=== PATIENT | male | born 1965 | race Caucasian/White ===

== ENCOUNTER 2018-04-26 09:59 | Emergency (ER) | payer MEDICAID, SELFPAY ==
[2016-08-26 13:44] VITALS: BMI 34.0
[2018-04-26 10:02] VITALS: BP 170/104; PULSE 85; RESP 18; TEMP 36.9; O2SAT 99; BMI 34.2
--- NOTE | 2018-04-26 10:14 | ED.VISSUMM ---
- ER Visit Summary Date of Service: 04/26/18 Chief Complaint: Burn to lower abdomen left thigh History of Present Illness: The patient is a 52 M drinking hot tea this morning approximately an hour ago and accidentally spilled it on his lower abdomen in the left thigh causing first and second-degree camp. Denies other injuries or complaints. He is not diabetic. Physical Examination: Well-appearing middle-age male. Vital signs are stable and afebrile. HEENT exam unremarkable. Lungs clear to auscultation. Heart regular rhythm. Abdomen is soft and nondistended. He has first-degree burn on his left lower anterior abdominal wall. There is no sloughing of skin. There is no blistering. It is red mildly tender. He also has an area on his proximal medial left thigh that has first and secondary camp with blistering. Again no sloughing of skin. The distal lower leg is neurovascularly intact. Neurologically is awake and alert without focal motor deficits. Test Results: None Emergency Department Course and Treatment: Antibiotic ointment or burn cream. Cool compresses. Limited Motrin for pain. Treatment Plan: Cool compresses. See above. Disposition: Discharge Impression: First and second-degree burn of left lower abdomen and left thigh secondary to hot liquid This note was generated with [employer] dictation software. It may contain incorrect words, spelling, and punctuation that were not noted in review of the chart prior to signing ED Disposition - Plan for ED Patient: Chief Complaint: Burn Referrals: Gavin Florez DO [Primary Care Provider] -
--- NOTE | 2018-04-26 10:16 | ED.DEP ---
ED Disposition - Plan for ED Patient: Disposition: Home or Assisted Living Chief Complaint: Burn Instructions: ED Burn Thermal D 2nd Dressing Referrals: Gavin Florez DO [Primary Care Provider] - As Needed Additional Instructions: Cool compresses to the area. Keep the wounds clean. Antibiotic ointment and/or burn cream. Motrin for pain and inflammation and limited amounts due to you being on Plavix.
== END 2018-04-26 10:40 | disposition home or self-care (01) ==
LOC: ED 10:34
PROVIDERS: Emergency Provider Emergency Medicine; Family Provider Family Medicine; PCP Family Medicine
DX: T21.22XA Burn of second degree of abdominal wall, initial encounter (principal); T24.212A Burn of second degree of left thigh, initial encounter; X12.XXXA Contact with other hot fluids, initial encounter; Y93.9 Activity, unspecified; Y92.9 Unspecified place or not applicable; I25.10 Atherosclerotic heart disease of native coronary artery without angina pectoris; K21.9 Gastro-esophageal reflux disease without esophagitis; I10 Essential (primary) hypertension; E78.00 Pure hypercholesterolemia, unspecified; G47.30 Sleep apnea, unspecified; I73.9 Peripheral vascular disease, unspecified; Z95.5 Presence of coronary angioplasty implant and graft; Z79.82 Long term (current) use of aspirin; Z79.899 Other long term (current) drug therapy
CPT/HCPCS: 99282

== ENCOUNTER → 2019-01-02 | Outpatient (CLI) | payer MEDICAID, SELFPAY ==
[2016-08-26 13:44] VITALS: BMI 34.0
[2018-11-10 15:26] VITALS: BMI 33.9
[2019-01-02 08:40] LABS: AST(SGOT) 36 U/L (15-37); Alanine Aminotransfer ALT/SGPT 69 U/L (16-61); Albumin, Serum 3.6 g/dL (3.2-5.0); Alkaline Phosphatase 78 U/L (45-117); Bilirubin, Direct 0.12 mg/dL (0.00-0.30); Cholesterol 144 mg/dL (200); Globulin 3.6 g/dL (2.2-4.2); High Density Lipoprotein 35 mg/dL; Protein, Total 7.2 g/dL (6.4-8.2); Triglycerides 174 mg/dL; Very Low Density Lipoprotein 35 mg/dL (5-40)
== END | disposition home or self-care (01) ==
LOC: LAB 07:26
PROVIDERS: Family Provider Family Medicine; PCP Family Medicine; Referring Provider Nurse Practitioner Family; Visit Provider Nurse Practitioner Family
DX: I25.10 Atherosclerotic heart disease of native coronary artery without angina pectoris (principal); E78.5 Hyperlipidemia, unspecified
CPT/HCPCS: 36415; 80061; 80076

== ENCOUNTER → 2019-03-05 | Outpatient (CLI) | payer MEDICAID, SELFPAY ==
[2016-08-26 13:44] VITALS: BMI 34.0
[2019-01-19 06:41] VITALS: BMI 34.9
--- NOTE | 2019-03-05 16:30 | US_ITS ---
STUDY: SCROTUM ULTRASOUND REASON FOR EXAM: Male, 53 years old. Testicular edema. TECHNIQUE: Ultrasound evaluation of the scrotum was performed with color Doppler and static choudhary-scale imaging. COMPARISON: None. FINDINGS: RIGHT TESTICLE INTRATESTICULAR: There is a normal size of the right testicle. The right testicle measures 4.7 x 4.3 x 2.1 cm. There is a homogenous echotexture. There is normal arterial and normal venous vascularity. There is no demonstrated right testicular mass or cyst. EXTRATESTICULAR: The epididymis is normal in size. The epididymis head measures 1.0 x 0.9 x 1.0 cm. There is normal vascularity of the epididymis. There is no demonstrated epididymal cystic structure. There is a small hydrocele. There is no demonstrated varicocele. There is no demonstrated extratesticular mass or cyst. LEFT TESTICLE INTRATESTICULAR: There is a normal size of the left testicle. The left testicle measures 4.8 x 3.7 x 2.5 cm. There is a homogenous echotexture. There is normal arterial and normal venous vascularity. There is no demonstrated left testicular mass or cyst. EXTRATESTICULAR: The epididymis is normal in size. The epididymis head measures 1.0 x 0.8 x 1.0 cm. There is normal vascularity of the epididymis. There is no demonstrated epididymal cystic structure. There is a moderate size hydrocele containing debris.. There is no demonstrated varicocele. There is no demonstrated extratesticular mass or cyst. There is marked in edema of the scrotal wall. US/Testicular with Arterial Flow IMPRESSION: 1. Normal bilateral testicles and epididymides. 2. Bilateral hydroceles, left greater than. There is debris seen within the hydrocele in the left scrotum. 3. Diffusely edematous scrotal wall. Electronically Signed: Simón Lenz DO at 18:21 EDT Tel [phone], Service support ,
--- NOTE | 2019-03-05 17:05 | EKG12_ITS ---
Test Reason : Blood Pressure : / mmHG Vent. Rate : 067 BPM Atrial Rate : 067 BPM P-R Int : 170 ms QRS Dur : 080 ms QT Int : 414 ms P-R-T Axes : 038 -13 -02 degrees QTc Int : 437 ms Normal sinus rhythm Minimal voltage criteria for LVH, may be normal variant Borderline ECG Confirmed by MARIANNE PAN ([id number]), writer editor LILIAM CORDERO ([id number]) on 03/08/2019 1:58:35 PM Referred By: Kailee [facility] Confirmed By:MARIANNE PAN
== END | disposition home or self-care (01) ==
LOC: US 16:27
PROVIDERS: Family Provider Nurse Practitioner Family; PCP Nurse Practitioner Family
DX: N44.8 Other noninflammatory disorders of the testis (principal); N50.811 Right testicular pain
CPT/HCPCS: 76870; 93005; 93976

== ENCOUNTER 2019-04-02 06:28 | Day surgery (SDC) | payer MEDICAID, SELFPAY ==
[2016-08-26 13:44] VITALS: BMI 34.0
[2019-03-18 15:22] VITALS: BMI 34.9
--- NOTE | 2019-03-19 01:24 | HP_ITS ---
Intake Vital Signs 03/18/19 Body Mass Index (BMI) 34.9 03/18/19 Height 5 ft 8 in 03/18/19 Weight: 235 lb 03/18/19 Body Mass Index (BMI) 35.7 03/18/19 Blood Pressure 139/87 H 03/18/19 Blood Pressure Location Rt brachial 03/18/19 Blood Pressure Position Sitting 03/18/19 Respiratory Rate 16 03/18/19 Pulse Rate 73 03/18/19 Pulse Source Monitor 03/18/19 Temperature 98.3 F 03/18/19 Pulse Ox 97 03/18/19 Oxygen Delivery Method room air Intake Visit Reasons: needs cscope/egd Chief Complaint: Follow-up visit. Web Marketing Strategist Required: No Is patient in pain?: No (Epigastric pain on and off) Allergies cat dander Allergy (Verified 03/18/19 15:22) Shortness of breath grass pollen Allergy (Verified 03/18/19 15:22) Unknown Medications Albuterol Inhaler [Ventolin Hfa] 1 - 2 puff INHALATION Q4H PRN PRN 08/16/16 [History Confirmed 03/18/19] Tamsulosin HCl [Flomax] 0.4 mg PO DAILY 08/16/16 [History Confirmed 03/18/19] Aspirin [Aspirin, Baby] 81 mg PO DAILY@0800 #0 tab.chew 08/27/16 [Rx Confirmed 03/18/19] atorvastatin 40 mg tablet 40 mg PO DAILY #90 tab 06/25/18 [Rx Confirmed 03/18/19] clopidogrel 75 mg tablet 75 mg PO QDAY #90 tab 11/10/18 [Rx Confirmed 03/18/19] lisinopril 20 mg tablet 20 mg PO DAILY #90 tab 11/10/18 [Rx Confirmed 03/18/19] metoprolol tartrate 25 mg tablet 12.5 mg PO BID #90 tab 11/10/18 [Rx Confirmed 03/18/19] omeprazole 40 mg capsule,delayed release 40 mg PO DAILY 11/10/18 [History Confirmed 03/18/19] albuterol sulfate HFA 90 mcg/actuation aerosol inhaler 2 puff INHALATION Q4H PRN #1 device 01/19/19 [Rx Confirmed 03/18/19] fluticasone furoate 200 mcg/actuation blister powder for inhalation 1 inh INHALATION QDAY #1 device 01/19/19 [Rx Confirmed 03/18/19] [facility] Medical History Encounter for long-term current use of high risk medication (Chronic) Obstructive sleep apnea (Chronic) Peripheral vascular disease (Chronic) Palpitations (Chronic) 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 Sister Breast cancer Sister Breast cancer Uterine cancer Brother Throat cancer Social History (Updated 03/19/19 @ 13:24 by Arik Lozano MD) Smoking Status: Never smoker alcohol intake: current alcohol intake frequency: a few times a week substance use type: does not use caffeine: No what type of physical activity do you participate in: none seatbelt use: always do you feel safe at home: Yes HPI HPI HPI: VALERIY NOLAN, is a 53 M who presents to the office today for HPI HPI Surgical H&P: Yes HPI: VALERIY NOLAN, is a 53 M who presents to the office today for EGD and colonoscopy. Patient reports long-standing GERD and he has never had an EGD. Patient also reports he needs a screening colonoscopy. He has never had one. He denies any blood in his stool or family history of colon cancer. ROS General General: Yes weight change; no fatigue Cardio Cardiovascular: Yes heart disease, high blood pressure and heart stent; no murmur, pacemaker, atrial fibrillation, heart attack, palpitations, shortness of breat with exertion or chest pain Psych Psychiatric: No depression or anxiety Resp Respiratory: Yes shortness of breath, Yes sleep apnea, No cough, No COPD, Yes asthma, No emphysema, No wheezing Gastro Gastrointestinal: Yes abdominal pain, No nausea or vomiting, No diarrhea, No constipation, No blood in stool, No acid reflux, No hemorrhoids, No ulcers, No gallbladder problem, No black,tarry stools Aidan Hematologic: Yes blood thinners Exam Const General: cooperative Orientation: alert, oriented x3 Resp Effort & Inspection: normal respiratory effort Auscultation: clear to auscultation bilaterally Cardio Rate: regular rate Rhythm: regular rhythm Heart Sounds: no murmurs GI Inspection: non-distended Palpation: soft, nontender Assessment & Plan Problems 1. Gastroesophageal reflux disease, esophagitis presence not specified K21.9 2. Screen for colon cancer Z12.11 Plan The patient has long-standing GERD and I do recommend EGD to check for Choi's esophagus. Patient is due for screening colonoscopy. I explained endoscopy in detail to the patient. I explained the risks including but not limited to stroke or heart attack with anesthesia, perforation of the GI tract, bleeding, infection. I explained that any of these could necessitate further emergency surgery. The patient understands and all questions were answered sufficiently. The patient wishes to proceed with procedure. Arik Lozano MD Pager: [facility] [address] [place] [address], [address] [place] [address] Office: Orders Orders: Colonoscopy Today Z12.11 EGD Today K21.9 Coding Level of Care Code Off vis,new,level 3 Diagnoses Gastroesophageal reflux disease, esophagitis presence not specified K21.9 ??Esophagitis presence: esophagitis presence not specified Screen for colon cancer Z12.11 03/19/19 1324 <Electronically signed by Arik lentz MD> Date _ Arik Lozano MD I have re-examined the patient. There are no clinical changes since date of exam.
[2019-03-26 15:28] VITALS: BMI 35.2
[2019-04-02 07:02] VITALS: BP 126/104; PULSE 51; RESP 18; TEMP 36.6; O2SAT 98; BMI 34.3
--- NOTE | 2019-04-02 07:30 | IMM_PTH ---
PATIENT: VALERIY NOLAN LOC: EN U#:[id number] AGE/SX: 53/M ROOM: RE04/02/[address]: Dr. Arik Lozano MD : 1965 BED: DIS: 04/02/2019 SPEC #: [id number] RECD: 04/02/19 11:27 STATUS: PHILLIP REIftikhar #: [id number] TEREZA: 04/02/19 07:[address]: Arik Lozano DEPT: IMMUNOHISTOCHEMISTRY RECD BY: Ashwini Park ENTERED: 04/02/19 11:28 SP TYPE: IMMUNO OTHR DR: Kristi Ceballos, BISQUE TILE BURNER-C Tissues: Stomach, NOS Procedures: H Pylori (initial) PHYSICIAN & INSTITUTION [place] [id number] SPECIMEN INFORMATION: Tissue Source: Antrum biopsy Clinical Info: GERD, colon screening Specimen Number: [id number] CPT code: 15835 METHODOLOGY: Deparaffinized sections of prefer/formalin-fixed tissue or PAP/DQ stained slides are incubated with monoclonal/polyclonal antibodies/oligonucleotide probes. Localization is made via biotin free immunoperoxidase method. Appropriate controls are performed and reacted as expected. Results on target cell population are indicated in the following table: RESULTS: ANTIBODY / CLONE RESULT H Pylori (polyclonal) negative These tests were developed and their performance characteristics determined by [facility]. They may not have been cleared or approved by the U.S. Food and Drug Administration. The FDA has determined that such clearance or approval is not necessary. INTERPRETATION: Antrum biopsy: Negative for Helicobacter pylori organisms. AM:candace 04/05/19
--- NOTE | 2019-04-02 07:30 | COLBX_PTH ---
PATIENT: VALERIY NOLAN LOC: EN U#:[id number] AGE/SX: 53/M ROOM: RE04/02/[address]: Dr. Arik Lozano MD : 1965 BED: DIS: 04/02/2019 SPEC #: [id number] RECD: 04/02/19 09:53 STATUS: PHILLIP АННА #: [id number] TEREZA: 04/02/19 07:[address]: Arik Lozano DEPT: SURGICAL PATHOLOGY RECD BY: Len Mcgrath ENTERED: 04/02/19 11:11 SP TYPE: COLON BX OTHR DR: Kristi Ceballos, BLUE LEATHER SORTER-C Tissues: Gastric mucous membrane Procedures: Surgery Specimen Level IV HEADER OPERATION: Colonoscopy, EGD ([facility] [place]) PRE-OP DIAGNOSIS: GERD, colon screening TISSUE SUBMITTED: Antrum biopsy for H. pylori and path MICROSCOPIC DIAGNOSIS Gastric antrum, biopsy: Mild chronic gastritis. AM:candace 04/05/19 COMMENT The results of immunohistochemistry for Helicobacter pylori will be reported separately ([id number]). MICROSCOPIC DESCRIPTION Slides are reviewed. GROSS DESCRIPTION Received in fixative is one container labeled with the patient's name and designated antral biopsy. The specimen consists of multiple irregular fragments of light iraheta soft tissue that in aggregate measure 0.6 x 0.2 x 0.1 cm. The specimen is totally submitted in one cassette. / SJ:candace 04/02/19 TC:3 CPT: 01392
[2019-04-02 08:13] VITALS: BP 116/67; BP 126/104; PULSE 76; RESP 18; TEMP 36.7; O2SAT 95
--- NOTE | 2019-04-02 08:14 | OP.ENDO_ITS ---
04/02/2019 Kristi Ceballos Re : Upper GI endoscopy procedure for Shaji Prater Dear Tucker This procedure was performed on Tuesday, April 02, 2019. My impressions and recommendations are as follows: Impressions : - Gastritis. Biopsied. Recommendations : - Await pathology results. - Discharge patient to home. - Resume previous diet. - Resume Plavix (clopidogrel) at prior dose tomorrow. My findings are described in the full procedure note, which is enclosed. If I can be of further assistance, please feel free to contact me at Doctor phone number(s): , Work: . Sincerely, Arik Lozano MD 04/02/2019 8:13:50 AM This report has been signed electronically.
[2019-04-02 08:15] VITALS: BP 115/73; BP 126/104; PULSE 73; RESP 18; O2SAT 95
--- NOTE | 2019-04-02 08:15 | OP.ENDO_ITS ---
04/02/2019 Kristi Ceballos Re : Colonoscopy procedure for Shaji Prater Dear Tucker This procedure was performed on Tuesday, April 02, 2019. My impressions and recommendations are as follows: Impressions : - The entire examined colon is normal on direct and retroflexion views. - No specimens collected. Recommendations : - Discharge patient to home. - Resume previous diet. - Continue present medications. - Repeat colonoscopy in 10 years for screening purposes. My findings are described in the full procedure note, which is enclosed. If I can be of further assistance, please feel free to contact me at Doctor phone number(s): , Work: . Sincerely, Arik Lozano MD 04/02/2019 8:14:54 AM This report has been signed electronically.
[2019-04-02 08:20] VITALS: BP 104/76; BP 126/104; PULSE 68; RESP 18; O2SAT 95
[2019-04-02 08:25] VITALS: BP 125/74; BP 126/104; PULSE 70; RESP 18; TEMP 36.7; O2SAT 95
[2019-04-02 09:27] VITALS: BP 126/104
== END 2019-04-02 09:27 | disposition home or self-care (01) ==
LOC: EN 06:29 → AC 06:30
PROVIDERS: Family Provider Nurse Practitioner Family; PCP Nurse Practitioner Family; Referring Provider Nurse Practitioner Family; Visit Provider Surgery
PROC: 0DJD8ZZ Inspection of Lower Intestinal Tract, Via Natural or Artificial Opening Endoscopic (ICD-10-PCS; CPT 45378; principal; 2019-04-02 07:25)
DX: Z12.11 Encounter for screening for malignant neoplasm of colon (principal); K29.50 Unspecified chronic gastritis without bleeding; K21.9 Gastro-esophageal reflux disease without esophagitis; G47.33 Obstructive sleep apnea (adult) (pediatric); I73.9 Peripheral vascular disease, unspecified; I36.1 Nonrheumatic tricuspid (valve) insufficiency; J45.909 Unspecified asthma, uncomplicated; E78.00 Pure hypercholesterolemia, unspecified; I10 Essential (primary) hypertension; I25.10 Atherosclerotic heart disease of native coronary artery without angina pectoris; G43.909 Migraine, unspecified, not intractable, without status migrainosus; G25.81 Restless legs syndrome; Z95.5 Presence of coronary angioplasty implant and graft; Z79.82 Long term (current) use of aspirin; Z79.02 Long term (current) use of antithrombotics/antiplatelets; Z79.899 Other long term (current) drug therapy
CPT/HCPCS: 43239; 45378; 88305; 88342; J7120; J2405

== ENCOUNTER → 2019-04-09 14:57 | Outpatient (CLI) | payer MEDICAID, SELFPAY ==
[2016-08-26 13:44] VITALS: BMI 34.0
[2019-04-02 07:02] VITALS: BMI 34.3
--- NOTE | 2019-04-09 14:58 | ECHOCS_ITS ---
Reason For Study: DYSPNEA Procedure This was a 2D Doppler, Color Flow transthoracic echocardiogram. The study was technically difficult. Contrast injection was performed. Exam performed in department. Left Ventricle Normal LV size. Left ventricular systolic function is normal. The estimated ejection fraction is 60 %. Stage 1 diastolic dysfunction. No regional wall motion abnormalities noted. Right Ventricle Normal RV size. Normal systolic function. Atria Normal left atrium. Normal right atrium. Mitral Valve Normal mitral valve. Tricuspid Valve Normal tricuspid valve. Aortic Valve The aortic valve is not well visualized. Pulmonic Valve Normal pulmonic valve. Great Vessels Normal aortic root. The pulmonary artery is normal size. Normal inferior vena cava. Pericardium/Pleural No pericardial effusion. Medication 22 gauge I.V. with prn adaptor inserted into right arm. Diluted definity 3.0ml given slow IV push to enhance endocardial definition. MMode/2D Measurements & Calculations LVIDd: 4.3 cm IVSd: 1.1 cm Ao root diam: 4.0 cm LVIDs: 2.9 cm LVPWd: 1.1 cm RVDd: 4.2 cm FS: 32.1 % LAV(MOD-bp): 44.4 ml LVAd ap4: 36.3 cm2 SV(MOD-sp4): 83.9 ml LAV(MOD-bp) Indexed: 20.5 ml/m2 EDV(MOD-sp4): 123.3 ml LAV(MOD-sp2): 49.8 ml EDV(sp4-el): 130.1 ml LAV(MOD-sp4): 34.7 ml LVAs ap4: 18.3 cm2 ESV(MOD-sp4): 39.4 ml ESV(sp4-el): 40.1 ml EF(MOD-sp4): 68.1 % EF(sp4-el): 69.2 % SV(sp4-el): 90.0 ml LA A4 area: 14.2 cm2 LA dimension(2D): 3.8 cm RA A4 area: 10.7 cm2 Time Measurements MV dec time: 0.20 sec Doppler Measurements & Calculations MV E max oumar: 90.7 cm/sec Lat Peak E' Oumar: 9.2 cm/sec Med Peak E' Oumar: 6.0 cm/sec MV A max oumar: 70.3 cm/sec E/E' lat: 9.9 E/E' med: 15.1 MV E/A: 1.3 Ao V2 max: 127.1 cm/sec LV V1 max: 128.3 cm/sec TR max oumar: 253.1 cm/sec Ao max P.5 mmHg LV V1 max P.6 mmHg TR max P.7 mmHg Interpretation Summary Normal LV size. Left ventricular systolic function is normal. The estimated ejection fraction is 60 %. Stage 1 diastolic dysfunction. Contrast injection was performed. Ordering Physician: Sixto Dalton/Mart Reynoso Referring Physician: SAMIRA MCKNIGHT [facility] Performed By: Ranjana Jurado, KINGS, RVT
== END ==
PROVIDERS: Referring Provider Nurse Practitioner Family; Visit Provider Nurse Practitioner Family
DX: R06.09 Other forms of dyspnea (principal); I25.10 Atherosclerotic heart disease of native coronary artery without angina pectoris; Z95.5 Presence of coronary angioplasty implant and graft; E78.5 Hyperlipidemia, unspecified; I10 Essential (primary) hypertension
CPT/HCPCS: 93306; Q9957; A4216; C8929

== ENCOUNTER → 2019-07-19 15:30 | Outpatient (CLI) | payer MEDICAID, SELFPAY ==
[2016-08-26 13:44] VITALS: BMI 34.0
[2019-07-19 14:42] VITALS: BMI 35.4
[2019-07-19 16:45] LABS: Absolute Lymphocyte Count 2.78 X10^3/uL (0.83-4.51); Absolute Neutrophil Count 6.3 X10^3/uL (2.0-7.7); Basophil# 0.03 X10^3/uL; Basophil% 0.3 % (0-1); Eosinophil# 0.15 X10^3/uL; Eosinophils% 1.5 % (0-5); Hematocrit 42.6 % (40-54); Hemoglobin 13.8 g/dL (13.0-16.5); Lymphocyte # 2.78 X10^3/ul (4.0); Lymphocyte % 26.9 % (19-41); Mean Corp Hgb Conc 32.4 g/dL (32-36); Mean Corpuscular Hgb 28.2 pg (27.0-32.0); Mean Corpuscular Volume 86.9 fL (80-94); Mean Platelet Vol. 9.2 fl (6.2-12.0); Monocyte# 0.98 X10^3/uL; Monocyte% 9.5 % (0-10); NRBC Flagged by Analyzer 0 % (0-5); Neutrophil # 6.33 X10^3/uL (2.7-7.7); Neutrophil % 61.3 % (47-70); Platelet Count 297 K/mm3 (150-450); RBC Distribution Width CV 13.6 % (11.6-14.6); RBC Distribution Width SD 42.9 fl (35.1-43.9); White Blood Count 10.3 K/mm3 (4.4-11.0)
[2019-07-19 17:08] LABS: Anion Gap 6 (5-15); BUN 12 mg/dL (7-18); BUN/Creat Ratio 13.6 RATIO (10-20); Calcium,Total 9.1 mg/dL (8.5-10.1); Chloride 107 mmol/L (98-107); Creatinine, Serum 0.88 mg/dL (0.70-1.30); EST Glomerular Filtration Rate 95 mL/min (>60); Est Glom Filt Rate - Afr Amer 115 mL/min (>60); Glucose 155 mg/dL (74-106); Potassium 3.8 mmol/L (3.5-5.1); Sodium Level 139 mmol/L (136-145)
[2019-07-19 17:12] LABS: BNP,B-Type NATRIURETIC PEPTIDE 6.2 pg/mL (0-100)
== END ==
PROVIDERS: Family Provider Nurse Practitioner Family; PCP Nurse Practitioner Family; Referring Provider Nurse Practitioner Family; Visit Provider Nurse Practitioner Family
DX: R07.9 Chest pain, unspecified (principal); R06.09 Other forms of dyspnea; I25.10 Atherosclerotic heart disease of native coronary artery without angina pectoris; Z95.5 Presence of coronary angioplasty implant and graft; I10 Essential (primary) hypertension; E78.5 Hyperlipidemia, unspecified
CPT/HCPCS: 36415; 80048; 83880; 84484; 85025

== ENCOUNTER → 2019-07-27 07:46 | Outpatient (CLI) | payer MEDICAID, SELFPAY ==
[2016-08-26 13:44] VITALS: BMI 34.0
[2019-07-19 14:42] VITALS: BMI 35.4
[2019-07-27 08:40] LABS: AST(SGOT) 63 U/L (15-37); Alanine Aminotransfer ALT/SGPT 99 U/L (16-61); Albumin, Serum 3.5 g/dL (3.2-5.0); Alkaline Phosphatase 97 U/L (45-117); Bilirubin, Direct 0.18 mg/dL (0.00-0.30); Cholesterol 148 mg/dL (200); Globulin 3.8 g/dL (2.2-4.2); High Density Lipoprotein 31 mg/dL; Protein, Total 7.3 g/dL (6.4-8.2); Triglycerides 228 mg/dL; Very Low Density Lipoprotein 46 mg/dL (5-40)
== END ==
PROVIDERS: Referring Provider Internal Medicine Cardiovascular Disease; Visit Provider Internal Medicine Cardiovascular Disease
DX: E78.5 Hyperlipidemia, unspecified (principal)
CPT/HCPCS: 36415; 80061; 80076

== ENCOUNTER → 2019-08-09 06:49 | Outpatient (CLI) | payer MEDICAID, SELFPAY ==
[2016-08-26 13:44] VITALS: BMI 34.0
[2019-07-19 14:42] VITALS: BMI 35.4
--- NOTE | 2019-08-09 17:50 | STRESSREP ---
Stress Test Report Exercise myocardial perfusion stress test. 53-year-old man with a history of previous coronary stenting of his left anterior descending artery and ostial diagonal branch. Stress protocol: Resting EKG demonstrates normal sinus rhythm with a rate of 81 bpm normal intervals are noted resting blood pressures 124/86 mmHg. The patient exercised according to regular Jr protocol for total duration of 5 minutes the maximum heart rate attained was 160 bpm which was 96% of maximal predicted heart rate the maximum workload was 6.9 metabolic equivalents. At rest there were no ST or T wave changes noted suggest ischemia peak exercise upsloping ST changes only were noted with no meet the criteria for ischemia. The resting blood pressures 124/86 with a peak blood pressure 160/70 mmHg the test was discontinued due to dyspnea, leg discomfort and target heart rate being achieved. Myocardial perfusion protocol. 14.8 mCi of technetium 99m sestamibi was injected at rest. The patient exercised according to regular Jr protocol for total duration of 5 minutes at peak exercise 44.4 mCi of technetium 99m sestamibi was injected at rest.. Stress and rest images were reconstructed in comparing the short axis vertical long horizontal long axis. Perfusion SPECT analysis: Review of the images demonstrate normal uptake of tracer noted in all areas of the myocardium the resting images similar demonstrate normal uptake of tracer noted in all areas of the myocardium. No reversibility is noted suggest ischemia no previous infarct is noted. Gated SPECT analysis: The gated ejection fraction is noted to be 77%. Conclusion: Normal exercise myocardial perfusion stress test with no evidence of ischemia. Preserved ejection fraction.
== END ==
PROVIDERS: Referring Provider Nurse Practitioner Family; Visit Provider Nurse Practitioner Family
DX: I25.10 Atherosclerotic heart disease of native coronary artery without angina pectoris (principal); R06.09 Other forms of dyspnea; R07.9 Chest pain, unspecified; E78.5 Hyperlipidemia, unspecified; I10 Essential (primary) hypertension; Z95.5 Presence of coronary angioplasty implant and graft
CPT/HCPCS: 78452; 93017; A9500; A4216

== ENCOUNTER → 2020-08-05 08:11 | Outpatient (CLI) | payer MEDICAID, SELFPAY ==
[2016-08-26 13:44] VITALS: BMI 34.0
[2020-08-01 12:40] VITALS: BMI 31.7
[2020-08-05 09:24] LABS: AST(SGOT) 23 U/L (15-37); Alanine Aminotransfer ALT/SGPT 49 U/L (16-61); Albumin, Serum 3.5 g/dL (3.2-5.0); Alkaline Phosphatase 105 U/L (45-117); Bilirubin, Direct 0.07 mg/dL (0.00-0.30); Cholesterol 208 mg/dL (200); Globulin 3.8 g/dL (2.2-4.2); High Density Lipoprotein 27 mg/dL; Protein, Total 7.3 g/dL (6.4-8.2); Triglycerides 710 mg/dL
== END ==
PROVIDERS: Referring Provider Internal Medicine Cardiovascular Disease; Visit Provider Internal Medicine Cardiovascular Disease
DX: E78.00 Pure hypercholesterolemia, unspecified (principal)
CPT/HCPCS: 36415; 80061; 80076

== ENCOUNTER 2020-10-31 14:27 | Outpatient (CLI) | payer MEDICAID, SELFPAY ==
[2016-08-26 13:44] VITALS: BMI 34.0
[2020-10-31] VITALS (7 sets, daily range): BP systolic 130–138; BP diastolic 77–84; PULSE 62–70; RESP 16; TEMP 36.6–36.7; O2SAT 96–97; BMI 31.9
== END 2020-10-31 18:25 | disposition home or self-care (01) ==
LOC: ICUOUT 14:28 → ICU 14:33
PROVIDERS: Referring Provider Nurse Practitioner Acute Care; Visit Provider Nurse Practitioner Acute Care
DX: U07.1 COVID-19 (principal)
CPT/HCPCS: J7050; M0239; Q0245; Q0240

== ENCOUNTER → 2021-03-24 07:14 | Outpatient (CLI) | payer MEDICAID, SELFPAY ==
[2016-08-26 13:44] VITALS: BMI 34.0
[2021-03-24 07:54] LABS: Absolute Lymphocyte Count 3.03 X10^3/uL (0.83-4.51); Absolute Neutrophil Count 4.3 X10^3/uL (2.0-7.7); Basophil# 0.03 X10^3/uL; Basophil% 0.4 % (0-1); Eosinophil# 0.13 X10^3/uL; Eosinophils% 1.6 % (0-5); Hematocrit 40.1 % (40-54); Hemoglobin 13.5 g/dL (13.0-16.5); Lymphocyte # 3.03 X10^3/ul (0.83-4.51); Lymphocyte % 36.9 % (19-41); Mean Corp Hgb Conc 33.7 g/dL (32-36); Mean Corpuscular Hgb 28.2 pg (27.0-32.0); Mean Corpuscular Volume 83.7 fL (80-94); Mean Platelet Vol. 9.4 fl (6.2-12.0); Monocyte# 0.75 X10^3/uL; Monocyte% 9.1 % (0-10); NRBC Flagged by Analyzer 0 % (0-5); Neutrophil # 4.25 X10^3/uL (2.7-7.7); Neutrophil % 51.8 % (47-70); Platelet Count 297 K/mm3 (150-450); RBC Distribution Width CV 12.9 % (11.6-14.6); RBC Distribution Width SD 39.3 fl (35.1-43.9); Red Blood Count 4.79 M/mm3 (4.6-6.2); White Blood Count 8.2 K/mm3 (4.4-11.0)
[2021-03-24 08:26] LABS: ALB/GLOB Ratio 1.1 RATIO (0.9-2.4); AST(SGOT) 24 U/L (15-37); Alanine Aminotransfer ALT/SGPT 50 U/L (16-61); Albumin, Serum 3.6 g/dL (3.2-5.0); Alkaline Phosphatase 74 U/L (45-117); Anion Gap 10 (5-15); BUN 14 mg/dL (7-18); BUN/Creat Ratio 18.2 RATIO (10-20); Calcium,Total 8.6 mg/dL (8.5-10.1); Chloride 101 mmol/L (98-107); Cholesterol 144 mg/dL (200); Creatinine, Serum 0.77 mg/dL (0.70-1.30); EST Glomerular Filtration Rate 110 mL/min (>60); Est Glom Filt Rate - Afr Amer 134 mL/min (>60); Globulin 3.4 g/dL (2.2-4.2); Glucose 269 mg/dL (74-106); High Density Lipoprotein 31 mg/dL; PSA,Total - Annual Screen 0.65 ng/mL (0.00-4.00); Potassium 3.7 mmol/L (3.5-5.1); Sodium Level 138 mmol/L (136-145); Thyroid Stim Hormone (TSH) 0.91 uIU/mL (0.358-3.74); Triglycerides 334 mg/dL; Very Low Density Lipoprotein 67 mg/dL (5-40)
== END ==
PROVIDERS: Referring Provider Nurse Practitioner Adult Health; Visit Provider Nurse Practitioner Adult Health
DX: R59.0 Localized enlarged lymph nodes (principal); Z12.5 Encounter for screening for malignant neoplasm of prostate
CPT/HCPCS: 36415; 80053; 80061; 84153; 84443; 85025; G0103

== ENCOUNTER 2021-03-30 14:23 | Outpatient (CLI) | payer MEDICAID, SELFPAY ==
[2016-08-26 13:44] VITALS: BMI 34.0
--- NOTE | 2021-03-30 14:25 | US_ITS ---
EXAM: US SCROTUM : 1965 CLINICAL INDICATION: TESTICULAR DYSFUNCTION TECHNIQUE: Realtime ultrasound of the testicles was performed with grayscale and Color Doppler analysis. This report was created using [employer] report [employer] technology. COMPARISON: None. FINDINGS: RIGHT TESTICLE: Right testicle measures 3.2 x 4.3 x 2.5 cm. There are several vessels external to the testicle. Normal in size and echotexture. No focal lesion. Normal blood flow is present. LEFT TESTICLE: The left testicle measures 3.5 x 4.7 x 2.7 cm. EPIDIDYMIDES: The right epididymal head measures 8 x 6 mm. The left epididymal head measures 9 x 6 mm. Normal color Doppler flow pattern in the epididymis. SCROTUM: There are cerebral vessels external to the testicle which may represent a varicocele. No hydrocele. US/Testicular with Arterial Flow IMPRESSION: Bilateral varicoceles. No other abnormalities are seen. There is no evidence of torsion. at 1743 Reported and signed by: Daniel Matthews MD Electronically Signed: Daniel Matthews MD at 17:42 EDT Tel , Service support ,
== END 2021-03-30 23:59 | disposition home or self-care (01) ==
PROVIDERS: Referring Provider Nurse Practitioner Adult Health; Visit Provider Nurse Practitioner Adult Health
DX: N43.3 Hydrocele, unspecified (principal); N50.819 Testicular pain, unspecified
CPT/HCPCS: 76870; 93976

== ENCOUNTER → 2021-04-17 16:22 | Outpatient (CLI) | payer MEDICAID, SELFPAY ==
[2016-08-26 13:44] VITALS: BMI 34.0
--- NOTE | 2021-04-17 16:26 | US_ITS ---
STUDY: SUPERFICIAL ULTRASOUND - LEFT CERVICAL REGION. REASON FOR EXAM: Male, 55 years old. ENLARGED LYMPH NODES TECHNIQUE: A superficial ultrasound was performed with real-time and static choudhary-scale imaging. COMPARISON: None. FINDINGS: Several small lymph nodes are seen in left upper cervical region. The largest measures 1.4 cm x 1.4 cm x 0.7 cm. These have a fatty hilum. This is suggestive of a benign process. US/Head/Neck Soft Tissue IMPRESSION: The palpable abnormality corresponds to multiple small lymph nodes. Electronically Signed: Grover Blood MD at 12:57 EDT , Service support ,
== END ==
PROVIDERS: Referring Provider Nurse Practitioner Adult Health; Visit Provider Nurse Practitioner Adult Health
DX: R59.9 Enlarged lymph nodes, unspecified (principal)
CPT/HCPCS: 76536

== ENCOUNTER 2021-09-29 07:24 | Outpatient (CLI) | payer MEDICAID, SELFPAY ==
[2016-08-26 13:44] VITALS: BMI 34.0
[2021-09-29 08:18] LABS: Cholesterol 183 mg/dL (200); High Density Lipoprotein 26 mg/dL; Triglycerides 331 mg/dL; Very Low Density Lipoprotein 66 mg/dL (5-40)
== END 2021-09-29 23:59 | disposition home or self-care (01) ==
LOC: LAB 07:25
PROVIDERS: Referring Provider Nurse Practitioner Adult Health; Visit Provider Nurse Practitioner Adult Health
DX: E78.5 Hyperlipidemia, unspecified (principal)
CPT/HCPCS: 36415; 80061

== ENCOUNTER → 2022-01-05 | Outpatient (CLI) | payer MEDICAID, SELFPAY ==
[2016-08-26 13:44] VITALS: BMI 34.0
[2022-01-05 08:07] LABS: Absolute Lymphocyte Count 2.64 X10^3/uL (0.83-4.51); Absolute Neutrophil Count 3.4 X10^3/uL (2.0-7.7); Basophil# 0.02 X10^3/uL; Basophil% 0.3 % (0-1); Eosinophil# 0.13 X10^3/uL; Eosinophils% 1.9 % (0-5); Hematocrit 43.6 % (40-54); Hemoglobin 14.1 g/dL (13.0-16.5); Lymphocyte # 2.64 X10^3/ul (0.83-4.51); Lymphocyte % 38.5 % (19-41); Mean Corp Hgb Conc 32.3 g/dL (32-36); Mean Corpuscular Hgb 27.4 pg (27.0-32.0); Mean Corpuscular Volume 84.8 fL (80-94); Mean Platelet Vol. 8.8 fl (6.2-12.0); Monocyte# 0.67 X10^3/uL; Monocyte% 9.8 % (0-10); NRBC Flagged by Analyzer 0 % (0-5); Neutrophil # 3.38 X10^3/uL (2.7-7.7); Neutrophil % 49.4 % (47-70); Platelet Count 276 K/mm3 (150-450); RBC Distribution Width CV 13.4 % (11.6-14.6); RBC Distribution Width SD 41.8 fl (35.1-43.9); Red Blood Count 5.14 M/mm3 (4.6-6.2); White Blood Count 6.9 K/mm3 (4.4-11.0)
[2022-01-05 08:34] LABS: ALB/GLOB Ratio 1.1 RATIO (0.9-2.4); AST(SGOT) 21 U/L (15-37); Alanine Aminotransfer ALT/SGPT 56 U/L (16-61); Albumin, Serum 3.9 g/dL (3.2-5.0); Alkaline Phosphatase 52 U/L (45-117); Anion Gap 7 (5-15); BUN 18 mg/dL (7-18); Calcium,Total 9.5 mg/dL (8.5-10.1); Chloride 108 mmol/L (98-107); Cholesterol 219 mg/dL (200); EST Glomerular Filtration Rate 92 mL/min (>60); Est Glom Filt Rate - Afr Amer 112 mL/min (>60); Globulin 3.5 g/dL (2.2-4.2); Glucose 132 mg/dL (74-106); High Density Lipoprotein 30 mg/dL; Potassium 4.1 mmol/L (3.5-5.1); Protein, Total 7.4 g/dL (6.4-8.2); Sodium Level 141 mmol/L (136-145); Triglycerides 228 mg/dL; Very Low Density Lipoprotein 46 mg/dL (5-40)
== END | disposition home or self-care (01) ==
LOC: LAB 07:47
PROVIDERS: Referring Provider Nurse Practitioner Adult Health; Visit Provider Nurse Practitioner Adult Health
DX: I10 Essential (primary) hypertension (principal); E78.5 Hyperlipidemia, unspecified
CPT/HCPCS: 36415; 80053; 80061; 85025

== ENCOUNTER → 2022-11-16 | Outpatient (CLI) | payer MEDICAID, SELFPAY ==
[2022-01-31 09:46] VITALS: BMI 34.0
[2022-11-16 08:20] LABS: AST(SGOT) 45 U/L (15-37); Alanine Aminotransfer ALT/SGPT 78 U/L (16-61); Albumin, Serum 3.6 g/dL (3.2-5.0); Alkaline Phosphatase 49 U/L (45-117); Bilirubin, Direct 0.18 mg/dL (0.00-0.30); Cholesterol 111 mg/dL (200); Globulin 3.2 g/dL (2.2-4.2); High Density Lipoprotein 27 mg/dL; Protein, Total 6.8 g/dL (6.4-8.2); Triglycerides 167 mg/dL; Very Low Density Lipoprotein 33 mg/dL (5-40)
== END | disposition home or self-care (01) ==
LOC: LAB 07:22
PROVIDERS: Visit Provider Internal Medicine Cardiovascular Disease
DX: E78.00 Pure hypercholesterolemia, unspecified (principal)
CPT/HCPCS: 36415; 80061; 80076

== ENCOUNTER → 2022-12-27 | Outpatient (CLI) | payer MEDICAID, SELFPAY ==
[2022-01-31 09:46] VITALS: BMI 34.0
--- NOTE | 2022-12-27 06:36 | ECHOCS_ITS ---
Reason For Study: CAD/ASHD Procedure This was a 2D Doppler, Color Flow transthoracic echocardiogram. The study was technically difficult. Contrast injection was performed. Exam performed in department. Left Ventricle Normal LV size. Left ventricular systolic function is normal. The estimated ejection fraction is 60 %. Normal diastology for age. No regional wall motion abnormalities noted. Right Ventricle Normal RV size. Normal systolic function. Atria Normal left atrium. Normal right atrium. Mitral Valve Normal mitral valve. Tricuspid Valve Normal tricuspid valve. Mild (1+) tricuspid valve insufficiency. Pulmonary artery systolic pressure is 40 mmHg. Aortic Valve Normal aortic valve. Trisinus/trileaflet aortic valve. Pulmonic Valve Normal pulmonic valve. Great Vessels Normal aortic root. The pulmonary artery is normal size. Normal inferior vena cava. Pericardium/Pleural No pericardial effusion. Medication 22 gauge I.V. with prn adaptor inserted into left arm. Diluted definity 2ml given slow IV push to enhance endocardial definition. MMode/2D Measurements & Calculations LVIDd: 5.1 cm IVSd: 0.64 cm Ao root diam: 3.6 cm LVIDs: 3.6 cm LVPWd: 0.65 cm LA dimension: 3.7 cm RVDd: 3.2 cm FS: 28.7 % LAV(MOD-bp): 41.5 ml LVAd ap4: 36.6 cm2 SV(MOD-sp4): 73.4 ml LAV(MOD-bp) Indexed: 20.0 ml/m2 LVLd ap4: 8.9 cm LAV(MOD-sp2): 43.9 ml EDV(MOD-sp4): 120.5 ml LAV(MOD-sp4): 35.4 ml EDV(sp4-el): 127.6 ml LVAs ap4: 20.2 cm2 LVLs ap4: 7.2 cm ESV(MOD-sp4): 47.1 ml ESV(sp4-el): 48.3 ml EF(MOD-sp4): 60.9 % EF(sp4-el): 62.1 % SV(sp4-el): 79.3 ml LA A4 area: 15.4 cm2 RA A4 area: 13.3 cm2 Time Measurements MV dec time: 0.15 sec Doppler Measurements & Calculations MV E max oumar: 104.4 cm/sec Lat Peak E' Oumar: 13.1 cm/sec Med Peak E' Oumar: 9.5 cm/sec MV A max oumar: 87.0 cm/sec E/E' lat: 8.0 E/E' med: 10.9 MV E/A: 1.2 MV V2 max: 147.9 cm/sec MV P1/2t max oumar: 147.9 cm/sec Ao V2 max: 145.3 cm/sec MV max P.8 mmHg MV P1/2t: 66.2 msec Ao max P.5 mmHg MV V2 mean: 73.6 cm/sec Ao V2 mean: 95.3 cm/sec MV mean P.7 mmHg MV dec slope: 654.7 cm/sec2 Ao mean P.3 mmHg MV V2 VTI: 40.5 cm MVA(P1/2t): 3.3 cm2 Ao V2 VTI: 35.2 cm AV (velocity ratio): 0.85 LV V1 max: 131.4 cm/sec MR max oumar: 489.7 cm/sec PA V2 max: 117.5 cm/sec LV V1 max P.9 mmHg MR max P.9 mmHg PA V2 mean: 81.8 cm/sec LV V1 mean P.3 mmHg LV V1 mean: 84.3 cm/sec LV V1 VTI: 29.9 cm TR max oumar: 305.7 cm/sec TR max P.4 mmHg ECHO/Echo Complete W/ Contrast Interpretation Summary Normal LV size. Left ventricular systolic function is normal. The estimated ejection fraction is 60 %. Mild (1+) tricuspid valve insufficiency. Pulmonary artery systolic pressure is 40 mmHg. Contrast injection was performed. Ordering Physician: Mart Reynoso Referring Physician: Mart Reynoso Performed By: Gian Woods RCS
--- NOTE | 2022-12-27 10:34 | STRESSREP_ITS ---
Stress Test Report Date: 12/27/2022 Procedure: Exercise tolerance test/imaging study Indications: Dyspnea Consent: Per the patient Procedure: The patient exercised on a Jr protocol for 4 minutes and 11 seconds achieving a peak heart rate of 155 bpm (96% predicted maximal heart rate) with a peak blood pressure 174/78 mmHg and a peak MET capacity of 7.0 METs. The baseline ECG demonstrated normal sinus rhythm. The peak exercise ECG demonstrated no diagnostic ischemic changes. There were no cardiac dysrhythmias pretest, during exercise, or recovery. The functional capacity was considered below average. There was complaints of dyspnea during the exercise. Atypical chest pain lasting 2 to 3 seconds reported during recovery. The examination was discontinued secondary to target heart rate being achieved. The patient was injected with 14.7 mCi of technetium 99m Cardiolite and subsequently rest SPECT Cardiolite nuclear imaging was obtained in the horizontal long, vertical long, and short axis views. Post-exercise, the patient was injected with 44.5 of technetium 99m Cardiolite and subsequently stress SPECT Cardiolite nuclear imaging was obtained in the horizontal long, vertical long, and short axis views. A gated Cardiolite study at peak stress was obtained. Rest and stress SPECT Cardiolite nuclear imaging status post realignment, normalization, and attenuation correction, demonstrates the appearance of relative uniform tracer uptake and myocardial perfusion appearing within normal limits. There is end systolic thickening and brightening. The gated Cardiolite study demonstrates myocardial thickening and inward wall motion. The reported LVEF is 71%. Impression: 1. Technically adequate (percent predicted maximal heart rate greater than 85%) exercise tolerance test 2. Peak exercise ECG with no ischemic changes 3. There were no cardiac dysrhythmias pretest, during exercise, or recovery 4. Rest and stress SPECT Cardiolite nuclear imaging demonstrate small sized reversible perfusion defect of mild intensity of the apex suggestive of ischemia. 5. The gated Cardiolite study reports an LVEF of 71%. This note was generated with [email or web address] software. It may contain incorrect words, spelling, and punctuation that were not noted in checking the note before signing.
== END | disposition home or self-care (01) ==
LOC: CVS 06:35
PROVIDERS: Referring Provider Internal Medicine Cardiovascular Disease; Visit Provider Internal Medicine Cardiovascular Disease
DX: R06.09 Other forms of dyspnea (principal); I73.9 Peripheral vascular disease, unspecified; I25.10 Atherosclerotic heart disease of native coronary artery without angina pectoris; Z95.5 Presence of coronary angioplasty implant and graft; I10 Essential (primary) hypertension; E78.00 Pure hypercholesterolemia, unspecified; J45.909 Unspecified asthma, uncomplicated; G47.33 Obstructive sleep apnea (adult) (pediatric); E66.9 Obesity, unspecified; R00.2 Palpitations; R53.83 Other fatigue
CPT/HCPCS: 93306; 78452; 93017; A9500; Q9957; A4216; C8929

== ENCOUNTER → 2023-01-07 | Outpatient (CLI) | payer MEDICAID, SELFPAY ==
[2022-01-31 09:46] VITALS: BMI 34.0
--- NOTE | 2023-01-07 16:02 | RAD_ITS ---
EXAM: XR CHEST, 2 VIEWS CLINICAL INDICATION: SOB TECHNIQUE: Frontal and lateral views of the chest. COMPARISON: 04/30/2017. FINDINGS: LUNGS AND PLEURAL SPACES: Unremarkable. No consolidation or edema. No pneumothorax. No effusion. HEART: Unremarkable. Cardiac silhouette not enlarged. MEDIASTINUM: Central airways and mediastinal contour are unremarkable. BONES/JOINTS: Unremarkable. SOFT TISSUES: Unremarkable. RAD/Chest PA and Lateral IMPRESSION: No acute cardiopulmonary abnormality. Electronically Signed: Maik Epps MD at 3:18 EDT ,
[2023-01-07 16:14] LABS: Absolute Lymphocyte Count 2.98 X10^3/uL (0.83-4.51); Absolute Neutrophil Count 4.5 X10^3/uL (2.0-7.7); Basophil# 0.04 X10^3/uL; Basophil% 0.5 % (0-1); Eosinophil# 0.16 X10^3/uL; Eosinophils% 1.8 % (0-5); Hematocrit 42.3 % (40-54); Hemoglobin 13.7 g/dL (13.0-16.5); Lymphocyte # 2.98 X10^3/ul (0.83-4.51); Lymphocyte % 34.1 % (19-41); Mean Corp Hgb Conc 32.4 g/dL (32-36); Mean Corpuscular Hgb 28.4 pg (27.0-32.0); Mean Corpuscular Volume 87.6 fL (80-94); Mean Platelet Vol. 9.4 fl (6.2-12.0); Monocyte# 0.99 X10^3/uL; Monocyte% 11.3 % (0-10); NRBC Flagged by Analyzer 0 % (0-5); Neutrophil # 4.52 X10^3/uL (2.7-7.7); Neutrophil % 51.8 % (47-70); Platelet Count 290 K/mm3 (150-450); RBC Distribution Width SD 41.7 fl (35.1-43.9); Red Blood Count 4.83 M/mm3 (4.6-6.2); White Blood Count 8.7 K/mm3 (4.4-11.0)
[2023-01-07 16:36] LABS: BNP,B-Type NATRIURETIC PEPTIDE 9.4 pg/mL (0-100)
[2023-01-07 16:38] LABS: Anion Gap 6 (5-15); BUN 14 mg/dL (7-18); BUN/Creat Ratio 15.5 RATIO (10-20); Calcium,Total 9.1 mg/dL (8.5-10.1); Chloride 107 mmol/L (98-107); EST Glomerular Filtration Rate 92 mL/min (>60); Est Glom Filt Rate - Afr Amer 111 mL/min (>60); Glucose 137 mg/dL (74-106); Potassium 3.9 mmol/L (3.5-5.1); Sodium Level 140 mmol/L (136-145)
== END | disposition home or self-care (01) ==
LOC: LAB 15:51
PROVIDERS: Referring Provider Nurse Practitioner Family; Visit Provider Nurse Practitioner Family
DX: R06.09 Other forms of dyspnea (principal); Z95.5 Presence of coronary angioplasty implant and graft; I10 Essential (primary) hypertension; E78.00 Pure hypercholesterolemia, unspecified
CPT/HCPCS: 36415; 71046; 80048; 83880; 85025

== ENCOUNTER 2023-01-10 07:03 | Day surgery (SDC) | payer MEDICAID, SELFPAY ==
[2022-01-31 09:46] VITALS: BMI 34.0
[2023-01-09 07:55] VITALS: BMI 31.6
--- NOTE | 2023-01-10 11:09 | CL.D_ITS ---
Patient Name: VALERIY NOLAN Study Date: 01/10/2023 Performing: Mart Reynoso MD Ht: 68 inches 172.72 cm : 1965 Wt: 208.01 lbs 94.35 kg Age: 57 Gender: male BSA: 2.08 PROCEDURE(S) PERFORMED DC01-(24630)LHC/COR/LV CLINICAL PROFILE AND INDICATIONS Indications: Worsening Angina Heart Failure: None Stress/Imaging Date: 12/17/22Stress Test with SPECT MPI: Positive Low Risk CAD Presentations: Other: SOB CONCLUSIONS Nonobstructive eccentric right coronary artery lesion noted and a proximal previously stented LAD with mild in-stent stenosis. RECOMMENDATIONS Medical therapy DESCRIPTION OF PROCEDURE The patient arrived to the procedure lab. The risks and benefits of the procedure as well as a full description of our services here and current unavailability of surgical backup were fully explained to the patient and/or their significant other prior to the catheterization. The Timeout was completed, verifying the correct patient and procedure. The patient's procedural site was prepped and draped in the usual fashion. Local anesthetic was given subcutaneously to right radial region with Lidocaine 2%. Using a modified Seldinger technique, arterial access was obtained via the right radial artery, a 6Fr sheath was inserted. Left Coronary Artery selective angiography was performed in multiple views using a 5 Fr. 4.0 [place] catheter. Left Coronary Artery selective angiography was performed in multiple views using a 5 Fr. JL4 catheter. Right Coronary Artery selective angiography was then performed in multiple views using a 5 Fr. JR 5 catheter. Left Ventriculography was performed in JACINTO projection using a 5 Fr. Pigtail catheter. LV to AO pullback pressures were then recorded.The arterial sheath was pulled and a TR Band was applied for hemostasis - 10CC AIR CORONARY ANGIOGRAPHY DOMINANCE: Right Dominant LEFT HEART ASSESSMENT Left Ventricular Ejection Fraction: by LV Gram 60 % Normal LV wall motion Normal Left Ventricular systolic function LEFT MAIN: Angiographically normal LEFT ANTERIOR DESCENDING ARTERY: Previously placed stent in the proximal to mid LAD patent with approximately 40 to 50% in-stent stenosis CIRCUMFLEX ARTERY: This vessel appears to apparently arise from the right coronary cusp with some ostial disease present. Rudimentary vessel is seen from the left anterior descending artery. RIGHT CORONARY ARTERY: Proximal to mid 50% eccentric stenosis and mild distal disease present. COMPLICATIONS No Complications PROCEDURE MEDICATIONS Fentanyl 50 mcg IV Versed 1 mg IV Versed 1 mg IV Versed 1 mg IV Oxygen: 2 L/min via nasal cannula Heparin given IA 01/10/2023 10:26:15 Verapamil 2.5mg, Ntg 100mcgs, 3000 units of Heparin given IA 01/10/2023 10:26:15 SUMMARY OF HEMODYNAMIC DATA Time AIR REST ECG 07:20:27 AO 121/76 (96) SA 10:27:33 LV 134/8, 20 10:40:01 LV 127/20, 30 10:40:09 LV 118/19, 21 10:40:54 LV 119/18, 20 10:41:03 LVp 120/18, 20 10:41:08 AOp 126/75 (98) 10:41:15 Signed By Mart Reynoso MD On 01/10/2023 11:08:31 Mart Reynoso MD
== END 2023-01-10 12:30 | disposition home or self-care (01) ==
LOC: CLSP 07:04
PROVIDERS: Referring Provider Internal Medicine Cardiovascular Disease; Visit Provider Internal Medicine Cardiovascular Disease
DX: I25.119 Atherosclerotic heart disease of native coronary artery with unspecified angina pectoris (principal); I73.9 Peripheral vascular disease, unspecified; Z95.5 Presence of coronary angioplasty implant and graft; R06.02 Shortness of breath; G47.33 Obstructive sleep apnea (adult) (pediatric); Z99.89 Dependence on other enabling machines and devices; I10 Essential (primary) hypertension; Z79.82 Long term (current) use of aspirin; J45.909 Unspecified asthma, uncomplicated; Z86.16 Personal history of COVID-19; Z82.49 Family history of ischemic heart disease and other diseases of the circulatory system; E78.00 Pure hypercholesterolemia, unspecified; R06.09 Other forms of dyspnea
CPT/HCPCS: 93458; 99152; 99153; J7040; C1769; C1894; Q9967

== ENCOUNTER → 2023-09-13 | Outpatient (CLI) | payer OTHER, SELFPAY ==
[2022-01-31 09:46] VITALS: BMI 34.0
--- OUTSIDE RECORDS SUMMARY | 2023-09-13 07:38 | XMS RPT_ITS | CCD ---
Author Name Unknown Address [address] [place] [address] Organization [facility] Care Team Providers Care Snuff Box Finisher Name Role Phone Rosamaria Lia RN Unavailable Unavailable Rosamaria Lai RN Unavailable Unavailable Allergies Allergy Classification Reported Allergen(s) Allergy Type Date of Onset Reaction(s) Facility (2 sources) Grass pollen drug allergy 01-31-2015 [facility] Work Phone: Medications Completed/Discontinued Medications Medication Drug Class(es) Dates Sig (Normalized) Sig (Original) 200 actuat albuterol 0.09 mg/actuat metered dose inhaler (6 sources) beta2-Adrenergic Agonist Start: 01-31-2015 VENTOLIN HFA 108 (90 Base) MCG/ACT AERS 1-2 puffs every 6 hours as needed for SOB/wheezing ALBUTEROL SULFATE [id number] Gilles Tovar DO Problems Active Problems Problem Classification Problem Date Documented Date Episodic/Chronic Asthma (2 sources) Asthma; Translations: [Unspecified asthma, uncomplicated] Onset: 04-04-2016 04-04-2016 Chronic Coronary atherosclerosis and other heart disease (4 sources) Atherosclerotic heart disease of [place] coronary artery without angina pectoris; Translations: [Atherosclerotic heart disease of [place] coronary artery without angina pectoris] Onset: 08-27-2016 09-05-2016 Chronic Disorders of lipid metabolism (2 sources) Hyperlipidemia; Translations: [Hyperlipidemia, unspecified] Onset: 01-31-2015 01-31-2015 Chronic Esophageal disorders (2 sources) Gastroesophageal reflux disease; Translations: [Gastro-esophageal reflux disease without esophagitis] Onset: 04-04-2016 04-04-2016 Chronic Essential hypertension (2 sources) Hypertensive disorder; Translations: [Essential (primary) hypertension] Onset: 01-31-2015 01-31-2015 Chronic Heart valve disorders (2 sources) Nonrheumatic tricuspid (valve) insufficiency; Translations: [Nonrheumatic tricuspid (valve) insufficiency] Onset: 06-02-2017 06-02-2017 Chronic Other nutritional; endocrine; and metabolic disorders (2 sources) Obesity; Translations: [Obesity, unspecified] Onset: 05-16-2016 05-16-2016 Chronic Other upper respiratory disease (2 sources) Allergic rhinitis; Translations: [Allergic rhinitis, unspecified] Onset: 04-04-2016 04-04-2016 Chronic Peripheral and visceral atherosclerosis (2 sources) Peripheral vascular disease; Translations: [Peripheral vascular disease, unspecified] Onset: 03-12-2017 03-12-2017 Chronic Unclassified (4 sources) Obstructive sleep apnea syndrome; Translations: [Body mass index (BMI) 33.0-33.9, adult] Onset: 01-31-2015 01-31-2015 Chronic Unclassified (2 sources) Placement of stent in coronary artery ; Translations: [Presence of coronary angioplasty implant and graft] Onset: 08-27-2016 02-04-2017 Unclassified (4 sources) Long-term drug therapy; Translations: [Other assisted (current) drug therapy] Onset: 01-31-2015 08-27-2016 Past or Other Problems Problem Classification Problem Date Documented Da te Episodic/Chronic Cardiac dysrhythmias (2 sources) Palpitations; Translations: [Palpitations] Onset: 05-15-2017 05-15-2017 Episodic Nonspecific chest pain (2 sources) Tight chest; Translations: [Other chest pain] Onset: 08-08-2016 08-08-2016 Episodic Other lower respiratory disease (4 sources) Dyspnea on exertion; Translations: [Dyspnea] Onset: 01-31-2015 08-08-2016 Episodic Other skin disorders (2 sources) Disorder of the skin and subcutaneous tissue, unspecified; Translations: [Disorder of the skin and subcutaneous tissue, unspecified] Onset: 03-12-2017 03-12-2017 Episodic Unclassified (2 sources) Placement of stent in anterior descending branch of left coronary artery; Translations: [Presence of other vascular implants and grafts] Onset: 08-27-2016 08-27-2016 Results Test Name Value Interpretation Reference Range Facil ity Vital Signs Date Time Vital Sign Value Performing Clinician Vania jennings 05-15-2017 11:47-0400 BMI (Body Mass Index) 33.45 kg/m2 Rosamaria Lai RN [facility] Work Phone: 05-15-2017 11:47-0400 BP Diastolic 80 mm[Hg] Rosamaria Lai RN [facility] Work Phone: 05-15-2017 11:47-0400 BP Systolic 140 mm[Hg] Rosamaria Lai RN [facility] Work Phone: 05-15-2017 11:47-0400 Height 172.72 cm Rosamaria Lai RN [facility] Work Phone: 05-15-2017 11:47-0400 Pulse (Heart Rate) 64 /min Rosamaria Lai RN [facility] Work Phone: 05-15-2017 11:47-0400 Respiratory Rate 18 /min Rosamaria Lai RN [facility] Work Phone: 05-15-2017 11:47-0400 Weight 99.79 kg Rosamaria Lai RN [facility] Work Phone: 03-12-2017 08:31-0400 Body Temperature 98.2 [degF] Rosamaria Lai RN [facility] Work Phone: 09-06-2016 08:33-0500 BSA (Body Surface Area) 2.13 m2 Rosamaria Lai RN [facility] Work Phone: 05-16-2016 14:36-0400 Body Temperature 98.42 [degF] Rosamaria Lai RN [facility] Work Phone: 05-16-2016 14:36-0400 Height 172.72 cm Rosamaria Lai RN [facility] Work Phone: 05-16-2016 14:36-0400 Weight 102.27 kg Rosamaria Lai RN [facility] Work Phone: Procedures Date Procedure Procedure Detail Performing Clinician Start: 05-15-2017 End: 05-15-2017 *BMP Mart Reynoso MD Start: 05-15-2017 End: 06-02-2017 Echocardiography Mart Reynoso MD Start: 05-15-2017 End: 05-15-2017 Follow Up Appt 6 months Rishi Hernandez Start: 05-15-2017 End: 05-15-2017 Magnesium [Mass/volume] in Serum or Plasma Mart Reynoso MD Start: 05-15-2017 End: 05-15-2017 MMRishi Reynoso MD Start: 02-05-2017 End: 06-02-2017 *Hepatic Function Panel Sixto Lizarraga Sha [employer] Work Phone: Start: 02-05-2017 End: 02-05-2017 SLIDE FASTENERS INSPECTOR Sixto Lizarraga Sha [employer] Work Phone: Start: 02-05-2017 End: 02-05-2017 Follow Up Appt 6 months Sixto Zia Roof [employer] Work Phone: Start: 02-05-2017 End: 06-02-2017 Lipid 1996 panel - Serum or Plasma Sixto H Roof [employer] Work Phone: Start: 10-10-2016 End: 06-02-2017 *Hepatic Function Panel Gabrielle carrion PA-C Work Phone: Start: 10-10-2016 End: 06-02-2017 Lipid 1996 panel - Serum or Plasma Gabrielle Galarza PA-C Work Phone: Start: 09-06-2016 End: 09-06-2016 Follow Up Appt 6 months Rishi Hernandez Start: 09-06-2016 End: 09-06-2016 EVARISTO Reynoso MD Start: 09-06-2016 End: 06-02-2017 Referral to nurse wound Mart Reynoso MD Start: 08-08-2016 End: 08-09-2016 *BMP Gabrielle Galarza PA-C Work Phone: Start: 08-08-2016 End: 08-09-2016 aPTT in Platelet poor plasma by Coagulation assay Gabrielle Galarza PA-C Work Phone: Start: 08-08-2016 End: 08-09-2016 CBC W Auto Differential panel - Blood Gabrielle Galarza PA-C Work Phone: Start: 08-08-2016 End: 10-14-2016 Chest x-ray Gabrielle Galarza PA-C Work Phone: Start: 08-08-2016 End: 08-08-2016 SLIDE FASTENERS INSPECTOR Gabrielle Galarza PA-C Work Phone: Start: 08-08-2016 End: 10-14-2016 Ecg routine ecg w/least 12 lds w/i&r Gabrielle Galarza PA-C Work Phone: Start: 08-08-2016 End: 08-08-2016 Follow Up Appt 6 months Gabrielle carrion PA-C Work Phone: Start: 08-08-2016 End: 08-09-2016 INR in Platelet poor plasma by Coagulation assay Gabrielle Galarza PA-C Work Phone: Start: 08-08-2016 End: 10-14-2016 Left Heart Cath Gabrielle Galarza PA-C Work Phone: Start: 04-04-2016 End: 05-17-2016 DMB Gilles Tovar DO Work Phone: Start: 04-04-2016 End: 05-17-2016 Follow Up Appt 6 weeks Gilles Tovar DO Work Phone: Start: 04-04-2016 End: 05-17-2016 Pulmonary Function Test - complete Gilles Tovar DO Work Phone: Start: 08-03-2015 End: 08-03-2015 Follow Up Appt 1 year Mart Reynoso MD Start: 08-03-2015 End: 08-03-2015 MMM Mart Reynoso MD Start: 02-01-2015 End: 02-01-2015 SLIDE FASTENERS INSPECTOR Mart Reynoso MD Start: 02-01-2015 End: 02-01-2015 Ecg routine ecg w/least 12 lds w/i&r Mart Reynoso MD Start: 02-01-2015 End: 02-13-2015 Echocardiography Mart Reynoso MD Start: 02-01-2015 End: 02-01-2015 Follow Up Appt 6 months Rishi Hernandez Start: 02-01-2015 End: 08-03-2015 Nuclear stress test -exercise Mart Samaniego MD Plan of Treatment Date Care Activity Detail Author Start: 11-13-2017 End: 11-13-2017 Appointment Appointment [facility] Work Phone: Start: 06-10-2017 End: 06-10-2017 Appointment Appointment [facility] Work Phone: Start: 05-15-2017 End: 05-15-2017 *BMP *BMP [facility] Work Phone: Start: 05-15-2017 End: 05-27-2017 24 hour holter monitor 24 hour holter monitor [facility] Work Phone: Start: 05-15-2017 End: 05-27-2017 Echocardiography Echocardiogram (complete) [facility] Work Phone: Start: 05-15-2017 End: 05-15-2017 Follow Up Appt 6 months Follow Up Appt 6 months [facility] Work Phone: Start: 05-15-2017 End: 05-15-2017 Magnesium *Magnesium [facility] Work Phone: Start: 05-15-2017 End: 05-15-2017 MMM MMM [facility] Work Phone: Start: 02-05-2017 End: 06-02-2017 *Hepatic Function Panel *Hepatic Function Panel [facility] Work Phone: Start: 02-05-2017 End: 02-05-2017 SLIDE FASTENERS INSPECTOR SLIDE FASTENERS INSPECTOR [facility] Work Phone: Start: 02-05-2017 End: 02-05-2017 Follow Up Appt 6 months Follow Up Appt 6 months [facility] Work Phone: Start: 02-05-2017 End: 06-02-2017 Lipid panel [AGGREGATE] *Lipid Profile CC PCP [facility] Work Phone: Start: 12-12-2016 End: 12-12-2016 DMB DMB [facility] Work Phone: Start: 12-12-2016 End: 12-12-2016 Follow Up Appt 6 months Follow Up Appt 6 months [facility] Work Phone: Start: 10-10-2016 End: 06-02-2017 *Hepatic Function Panel *Hepatic Function Panel [facility] Work Phone: Start: 10-10-2016 End: 06-02-2017 Lipid panel [AGGREGATE] *Lipid Profile CC PCP [facility] Work Phone: Start: 09-06-2016 End: 09-19-2016 Cardiac Rehab Cardiac Rehab [facility] Work Phone: Start: 09-06-2016 End: 09-06-2016 Follow Up Appt 6 months Follow Up Appt 6 months [facility] Work Phone: Start: 09-06-2016 End: 09-06-2016 MMM MMM [facility] Work Phone: Start: 08-08-2016 End: 08-09-2016 *BMP *BMP [facility] Work Phone: Start: 08-08-2016 End: 08-09-2016 aPTT *PTT-Partial Thromboplastin Time [facility] Work Phone: Start: 08-08-2016 End: 08-09-2016 CBC W Auto Differential panel - Blood *CBC without Diff [facility] Work Phone: Start: 08-08-2016 End: 10-14-2016 Chest x-ray X-Ray, Chest, PA & Lateral [facility] Work Phone: Start: 08-08-2016 End: 08-08-2016 SLIDE FASTENERS INSPECTOR SLIDE FASTENERS INSPECTOR [facility] Work Phone: Start: 08-08-2016 End: 10-14-2016 Ecg routine ecg w/least 12 lds w/i&r EKG (In office) [facility] Work Phone: Start: 08-08-2016 End: 08-08-2016 Follow Up Appt 6 months Follow Up Appt 6 months [facility] Work Phone: Start: 08-08-2016 End: 08-09-2016 INR Coag RelTime (PPP) *PT/INR [facility] Work Phone: Start: 08-08-2016 End: 08-08-2016 Left Heart Cath Left Heart Cath [facility] Work Phone: Start: 05-16-2016 End: 05-16-2016 DMB DMB [facility] Work Phone: Start: 05-16-2016 End: 05-16-2016 Follow Up Appt 6 months Follow Up Appt 6 months [facility] Work Phone: Start: 04-04-2016 End: 05-17-2016 DMB DMB [facility] Work Phone: Start: 04-04-2016 End: 05-17-2016 Follow Up Appt 6 weeks Follow Up Appt 6 weeks [facility] Work Phone: Start: 04-04-2016 End: 05-17-2016 Pulmonary Function Test - complete Pulmonary Function Test - complete [facility] Work Phone: Start: 08-03-2015 End: 08-03-2015 Follow Up Appt 1 year Follow Up Appt 1 year [facility] Work Phone: Start: 08-03-2015 End: 08-03-2015 MMM MMM [facility] Work Phone: Start: 02-01-2015 End: 02-01-2015 SLIDE FASTENERS INSPECTOR SLIDE FASTENERS INSPECTOR [facility] Work Phone: Start: 02-01-2015 End: 02-01-2015 Ecg routine ecg w/least 12 lds w/i&r EKG (In office) [facility] [employer] Work Phone: Start: 02-01-2015 End: 02-01-2015 Echocardiography Echocardiogram (complete) [facility] [employer] Work Phone: Start: 02-01-2015 End: 02-01-2015 Follow Up Appt 6 months Follow Up Appt 6 months [facility] [employer] [employer] Work Phone: Start: 02-01-2015 End: 02-01-2015 Nuclear stress test -exercise Nuclear stress test -exercise [facility] [employer] Work Phone: Immunizations Immunization Date Immunization Notes Care Provider [facility] 05-16-2016 influenza, injectabl e, madin albino canine kidney, preservative free Rosamaria Lai RN [facility] [employer] Work Phone: 05-16-2016 [id number] Rosamaria Lai RN [facility] [employer] Work Phone: Progress note 04-18-2021 Note Date & Type Note Facility 04-18-2021 Note HNO ID: [id number] Author: Shreyas Case MD Service: ? Author Type: Physician Type: Progress Notes Filed: 04/18/2021 5:42 PM Note Text: [facility] UROLOGY VIRTUAL ESTABLISHED PATIENT CLINIC NOTE PATIENT INFO: Shaji Prater PCP: Kristi Ceballos CNP UROLOGY DIAGNOSES: 1. Hydrocele in adult - ICD9: 603.9, ICD10: N43.3 (primary diagnosis) 2. BPH with obstruction/lower urinary tract symptoms - ICD9: 600.01, 599.69, ICD10: N40.1, N13.8 CHIEF COMPLAINT: hydrocele HPI: Patient returns for continuing evaluation and management. Doing well No change in size of hydrocels No pain On FLomax +retrograde ejaculation, not bothered by it Helping urine stream PMHx/PSHx: see above, otherwise unchanged Rx: reviewed and unchanged ROS: see above, otherwise unchanged Labs: Imaging: None MEDICATIONS: Current Outpatient Medications Medication Sig - albuterol HFA (PROVENTIL HFA, VENTOLIN HFA) 90 mcg/actuation inhaler INHALE 2 PUFFS BY MOUTH EVERY 4 HOURS NEEDED FOR SHORTNESS OF BREATH FOR WHEEZING - atorvastatin (LIPITOR) 40 mg tablet Take 40 mg by mouth once daily. - clopidogrel (PLAVIX) 75 mg tablet Take 75 mg by mouth once daily. - ARNUITY ELLIPTA 200 mcg/actuation dsdv INHALE 1 PUFF BY MOUTH ONCE DAILY AT APPROXIMATELY THE SAME TIME EACH DAY - furosemide (LASIX) 40 mg tablet Take 40 mg by mouth once daily. - lisinopril (ZESTRIL, PRINIVIL) 20 mg tablet Take 20 mg by mouth once daily. - metoprolol tartrate, short acting, (LOPRESSOR) 25 mg tablet metoprolol METOPROLOL TARTRATE 25 MG TABS One-half tablet by mouth twice daily METOPROLOL TARTRATE [id number] eGge Kingston RN 09-04-[address] [facility] ([id number]) - Omeprazole 40 mg capsule Take 40 mg by mouth once daily. - tamsulosin ER (FLOMAX) 0.4 mg cap tamsulosin FLOMAX 0.4 MG CAPS One tablet by mouth daily TAMSULOSIN HCL [id number] Rosamaria Lai RN 01-31-[address] [facility] ([id number]) (Patient not taking: Reported on 10/28/2020) - sildenafil (REVATIO) 20 mg tablet TAKE 1 5 TABLETS BY MOUTH NEEDED AND DIRECTED No current facility-administered medications for this visit. PHYSICAL EXAM: There were no vitals taken for this visit. There is no height or weight on file to calculate BMI. General: Well masculinized, well nourished male Psych: euthymic, NAD Neuro: AANDOx3 DIAGNOSES: 1. Hydrocele in adult - ICD9: 603.9, ICD10: N43.3 (primary diagnosis) 2. BPH with obstruction/lower urinary tract symptoms - ICD9: 600.01, 599.69, ICD10: N40.1, N13.8 IMPRESSION/PLAN: Cont Flomax YULISSA done recently at [facility], we do not have report, obtain results Hydroceles stable F/u PRN I spent more than 15 minutes [id number] with the patient and over half the time was devoted to counseling and/or coordination of care. Consent for this telehealth visit obtained from the patient prior to initiation of the encounter. The patient acknowledges the limitations of telehealth and agrees to proceed. The patient understands that this visit will be documented in the medical record as any other patient encounter. Shreyas Case MD [facility] Progress note 10-28-2020 Note Date & Type Note Facility 10-28-2020 Note HNO ID: [id number] Author: Since[facility] ([facility]) Rosaura Service: ? Author Type: Nurse Practitioner Type: Progress Notes Filed: 10/28/2020 12:05 PM Note Text: Subjective HPI Nontoxic-appearing male presents urgent care chief complaint COVID-19 concerns. Duration of symptoms 1 week. Associated symptoms nasal congestion, chills loss of taste and smell. Patient states chills has since subsided. Earlier this week he did have a cough and a headache does have subsided. and son are ill currently. States feeling progressively better. States feels like the illness is almost over . Denies any OTC medication use. Denies any pain. Denies Covid vaccine history. Denies any fevers, nausea, vomiting, abdominal pain, chest pain, shortness of breath or change in bowel or bladder habit. Past medical history prescription medication use allergies reviewed. .Patient presents with: Nasal Congestion: drainage, chills, bodyaches, loss of smell and taste x 1 week PAST MEDICAL HISTORY Diagnosis Date - Arteriolonephrosclerosis - Asthma - Heart disease - Hypertension - Reflux esophagitis PAST SURGICAL HISTORY Procedure Laterality Date - ECISION OF LINGUAL TONSIL - HEART SURGERY HX ALLERGIES Patient has no known allergies. MEDICATIONS albuterol HFA (PROVENTIL HFA, VENTOLIN HFA) 90 mcg/actuation inhaler INHALE 2 PUFFS BY MOUTH EVERY 4 HOURS NEEDED FOR SHORTNESS OF BREATH FOR WHEEZING atorvastatin (LIPITOR) 40 mg tablet Take 40 mg by mouth once daily. clopidogrel (PLAVIX) 75 mg tablet Take 75 mg by mouth once daily. ARNUITY ELLIPTA 200 mcg/actuation dsdv INHALE 1 PUFF BY MOUTH ONCE DAILY AT APPROXIMATELY THE SAME TIME EACH DAY furosemide (LASIX) 40 mg tablet Take 40 mg by mouth once daily. lisinopril (ZESTRIL, PRINIVIL) 20 mg tablet Take 20 mg by mouth once daily. metoprolol tartrate, short acting, (LOPRESSOR) 25 mg tablet metoprolol METOPROLOL TARTRATE 25 MG TABS One-half tablet by mouth twice daily METOPROLOL TARTRATE [id number] Gege Kingston RN 09-04-2016 [facility] ([id number]) Omeprazole 40 mg capsule Take 40 mg by mouth once daily. sildenafil (REVATIO) 20 mg tablet TAKE 1 5 TABLETS BY MOUTH NEEDED AND DIRECTED tamsulosin ER (FLOMAX) 0.4 mg cap tamsulosin FLOMAX 0.4 MG CAPS One tablet by mouth daily TAMSULOSIN HCL [id number] Rosamaria Lai RN 01-31-2015 [facility] ([id number]) FAMILY HISTORY Problem Relation Age of Onset - Heart Mother - Heart Father Social History Tobacco Use - Smoking status: Never Smoker - Smokeless tobacco: Never Used Substance Use Topics - Alcohol use: Yes Comment: occ - Drug use: Never BP 132/72 Pulse 88 Temp 36.8 ?C (98.2 ?F) (Tympanic) Resp 16 Wt 94.8 kg (209 lb) SpO2 97% BMI 31.78 kg/m? Review of Systems Constitutional: Negative for chills, fever and malaise/fatigue. HENT: Positive for congestion. Negative for ear discharge, ear pain, sinus pain and sore throat. Eyes: Negative for blurred vision, pain, discharge and redness. Respiratory: Negative for cough, hemoptysis, sputum production, shortness of breath and wheezing. Cardiovascular: Negative for chest pain. Gastrointestinal: Negative for abdominal pain, diarrhea, nausea and vomiting. Musculoskeletal: Positive for myalgias. Skin: Negative for itching and rash. Neurological: Positive for headaches. Negative for dizziness. Objective Physical Exam Constitutional: General: He is not in acute distress. Appearance: He is not diaphoretic. HENT: Head: Normocephalic. Nose: Congestion present. Eyes: General: Right eye: No discharge. Left eye: No discharge. Conjunctiva/sclera: Conjunctivae normal. Pupils: Pupils are equal, round, and reactive to light. Cardiovascular: Rate and Rhythm: Normal rate and regular rhythm. Pulmonary: Effort: Pulmonary effort is normal. No tachypnea, accessory muscle usage or respiratory distress. Breath sounds: Normal breath sounds. No stridor. Abdominal: Palpations: Abdomen is soft. Tenderness: There is no abdominal tenderness. Musculoskeletal: General: Normal range of motion. Cervical back: Normal range of motion and neck supple. Lymphadenopathy: Cervical: No cervical adenopathy. Skin: General: Skin is warm and dry. Neurological: Mental Status: He is alert and oriented to person, place, and time. ASSESSMENT/PLAN: 1. Suspected COVID-19 virus infection - ICD9: V01.79, ICD10: Z20.822 - 2019 CORONAVIRUS COVID-19 test ordered. Results pending. Home quarantine recommended. Alternative diagnosis discussed. Patient was educated on supportive therapies. Patient will follow up with primary care provider as needed. Patient was instructed to immediately proceed to emergency room for any new, worsening, or symptoms lasting longer than anticipated. The patient's clinical presentation is otherwise unremarkable at this time. Based on exam and (more content not included)... [facility] Summary Purpose Family History No Family History Records FoundNo Family History Records Found Advance Directives No Advanced Directives Records FoundNo Advanced Directives Records Found Additional Source Comments (unrecognized sect ion and content) No Status Records FoundNo Status Records Found INFORMATION SOURCE (unrecogn ized section and content) DATE CREATED AUTHOR AUTHOR'S ORGANIZ ATION 08/26/2021 [facility] FOR RECORDS PERTAINING TO PATIENTS WHO ARE OR HAVE BEEN ENROLLED IN A CHEMICAL DEPENDENCY/SUBSTANCEABUSE PROGRAM, SOME INFORMATION MAY BE OMITTED. This clinical summary was aggregated from multiple sources. Caution should be exercised in using it in the provision of clinical care. This summary normalizes information from multiple sources, and as a consequence, information in this document may materially change the coding, format and clinical context of patient data. In addition, data may be omitted in some cases. CLINICAL DECISIONS SHOULD BE BASED ON THE PRIMARY CLINICAL RECORDS. [employer] provides no warranty or guarantee of the accuracy or completeness of information in this document.
[2023-09-13 08:41] LABS: Hematocrit 40.8 % (40-54); Hemoglobin 13.1 g/dL (13.0-16.5); Mean Corp Hgb Conc 32.1 g/dL (32-36); Mean Corpuscular Hgb 27.6 pg (27.0-32.0); Mean Corpuscular Volume 86.1 fL (80-94); Mean Platelet Vol. 9.3 fl (6.2-12.0); Platelet Count 288 K/mm3 (150-450); RBC Distribution Width CV 13.3 % (11.6-14.6); RBC Distribution Width SD 41.7 fl (35.1-43.9); Red Blood Count 4.74 M/mm3 (4.6-6.2); White Blood Count 8.6 K/mm3 (4.4-11.0)
[2023-09-13 09:19] LABS: ALB/GLOB Ratio 1.2 RATIO (0.9-2.4); AST(SGOT) 17 U/L (15-37); Alanine Aminotransfer ALT/SGPT 40 U/L (16-61); Albumin, Serum 3.8 g/dL (3.2-5.0); Alkaline Phosphatase 64 U/L (45-117); Anion Gap 5 (5-15); BUN 10 mg/dL (7-18); BUN/Creat Ratio 11.7 RATIO (10-20); Calcium,Total 9.7 mg/dL (8.5-10.1); Chloride 109 mmol/L (98-107); Creatinine, Serum 0.85 mg/dL (0.70-1.30); EST Glomerular Filtration Rate 97 mL/min (>60); Est Glom Filt Rate - Afr Amer 118 mL/min (>60); Globulin 3.1 g/dL (2.2-4.2); Glucose 140 mg/dL (74-106); Potassium 4.1 mmol/L (3.5-5.1); Protein, Total 6.9 g/dL (6.4-8.2); Sodium Level 140 mmol/L (136-145)
[2023-09-13 10:06] LABS: Microalbumin,Random Urine 17.9 mg/L (NO RANGE EST.)
== END | disposition home or self-care (01) ==
PROVIDERS: Referring Provider Nurse Practitioner Family; Visit Provider Nurse Practitioner Family
DX: E11.9 Type 2 diabetes mellitus without complications (principal); E78.5 Hyperlipidemia, unspecified; I10 Essential (primary) hypertension
CPT/HCPCS: 36415; 80053; 82043; 85027

== ENCOUNTER → 2024-03-06 | Outpatient (CLI) | payer OTHER, SELFPAY ==
[2022-01-31 09:46] VITALS: BMI 34.0
[2024-03-06 08:32] LABS: Absolute Lymphocyte Count 3.39 X10^3/uL (0.83-4.51); Absolute Neutrophil Count 4.7 X10^3/uL (2.0-7.7); Basophil# 0.03 X10^3/uL; Basophil% 0.3 % (0-1); Eosinophil# 0.17 X10^3/uL; Eosinophils% 1.9 % (0-5); Hematocrit 40.9 % (40-54); Hemoglobin 13.3 g/dL (13.0-16.5); Lymphocyte # 3.39 X10^3/ul (0.83-4.51); Lymphocyte % 37.3 % (19-41); Mean Corp Hgb Conc 32.5 g/dL (32-36); Mean Corpuscular Hgb 27.5 pg (27.0-32.0); Mean Corpuscular Volume 84.7 fL (80-94); Mean Platelet Vol. 8.8 fl (6.2-12.0); Monocyte# 0.75 X10^3/uL; Monocyte% 8.3 % (0-10); NRBC Flagged by Analyzer 0 % (0-5); Neutrophil # 4.73 X10^3/uL (2.7-7.7); Platelet Count 305 K/mm3 (150-450); RBC Distribution Width CV 13.2 % (11.6-14.6); RBC Distribution Width SD 41.1 fl (35.1-43.9); Red Blood Count 4.83 M/mm3 (4.6-6.2); White Blood Count 9.1 K/mm3 (4.4-11.0)
[2024-03-06 09:16] LABS: ALB/GLOB Ratio 1.1 RATIO (0.9-2.4); AST(SGOT) 22 U/L (15-37); Alanine Aminotransfer ALT/SGPT 41 U/L (16-61); Albumin, Serum 3.6 g/dL (3.2-5.0); Alkaline Phosphatase 68 U/L (45-117); Anion Gap 4 (5-15); BUN 11 mg/dL (7-18); BUN/Creat Ratio 11.6 RATIO (10-20); Calcium,Total 9.1 mg/dL (8.5-10.1); Chloride 109 mmol/L (98-107); Cholesterol 98 mg/dL (200); Creatinine, Serum 0.95 mg/dL (0.70-1.30); EST Glomerular Filtration Rate 86 mL/min (>60); Est Glom Filt Rate - Afr Amer 104 mL/min (>60); Globulin 3.3 g/dL (2.2-4.2); Glucose 131 mg/dL (74-106); High Density Lipoprotein 30 mg/dL; PSA,Total - Annual Screen 1.01 ng/mL (0.00-4.00); Potassium 3.8 mmol/L (3.5-5.1); Protein, Total 6.9 g/dL (6.4-8.2); Sodium Level 141 mmol/L (136-145); Thyroid Stim Hormone (TSH) 0.79 uIU/mL (0.358-3.74); Triglycerides 171 mg/dL; Very Low Density Lipoprotein 34 mg/dL (5-40)
[2024-03-06 10:51] LABS: Microalbumin,Random Urine 49.8 mg/L (NO RANGE EST.); Microalbumin:Creatinine Ratio 19.3 mg/g CRE (<30 mg/g CRE)
== END | disposition home or self-care (01) ==
LOC: LAB 08:11
PROVIDERS: Referring Provider Nurse Practitioner Family; Visit Provider Nurse Practitioner Family
DX: E11.9 Type 2 diabetes mellitus without complications (principal); I10 Essential (primary) hypertension; E78.5 Hyperlipidemia, unspecified; Z12.5 Encounter for screening for malignant neoplasm of prostate
CPT/HCPCS: 36415; 80053; 80061; 82043; 82570; 84153; 84443; 85025; G0103

== ENCOUNTER → 2024-09-01 | Outpatient (CLI) | payer OTHER, SELFPAY ==
[2022-01-31 09:46] VITALS: BMI 34.0
[2024-09-01 17:08] LABS: Absolute Lymphocyte Count 3.61 X10^3/uL (0.83-4.51); Absolute Neutrophil Count 4.4 X10^3/uL (2.0-7.7); Basophil# 0.03 X10^3/uL; Basophil% 0.3 % (0-1); Eosinophil# 0.11 X10^3/uL; Eosinophils% 1.2 % (0-5); Hematocrit 41.1 % (40-54); Hemoglobin 13.5 g/dL (13.0-16.5); Lymphocyte # 3.61 X10^3/ul (0.83-4.51); Lymphocyte % 39.4 % (19-41); Mean Corp Hgb Conc 32.8 g/dL (32-36); Mean Corpuscular Volume 85.3 fL (80-94); Monocyte# 0.99 X10^3/uL; Monocyte% 10.8 % (0-10); NRBC Flagged by Analyzer 0 % (0-5); Neutrophil % 48.1 % (47-70); Platelet Count 309 K/mm3 (150-450); RBC Distribution Width CV 13.2 % (11.6-14.6); Red Blood Count 4.82 M/mm3 (4.6-6.2); White Blood Count 9.2 K/mm3 (4.4-11.0)
[2024-09-01 17:46] LABS: AST(SGOT) 25 U/L (15-37); Alanine Aminotransfer ALT/SGPT 44 U/L (16-61); Albumin, Serum 3.7 g/dL (3.2-5.0); Alkaline Phosphatase 68 U/L (45-117); Anion Gap 8 (5-15); BUN 17 mg/dL (7-18); Calcium,Total 9.6 mg/dL (8.5-10.1); Chloride 106 mmol/L (98-107); Cholesterol 104 mg/dL (200); EST Glomerular Filtration Rate 81 mL/min (>60); Est Glom Filt Rate - Afr Amer 98 mL/min (>60); Globulin 3.6 g/dL (2.2-4.2); Glucose 154 mg/dL (74-106); High Density Lipoprotein 34 mg/dL; Potassium 3.6 mmol/L (3.5-5.1); Protein, Total 7.3 g/dL (6.4-8.2); Sodium Level 140 mmol/L (136-145); Thyroid Stim Hormone (TSH) 0.907 uIU/mL (0.358-3.740); Triglycerides 213 mg/dL; Very Low Density Lipoprotein 43 mg/dL (5-40)
[2024-09-01 18:00] LABS: Microalbumin,Random Urine 19.3 mg/L (NO RANGE EST.)
== END | disposition home or self-care (01) ==
LOC: VSLAB 16:33
PROVIDERS: PCP Nurse Practitioner Family; Visit Provider Nurse Practitioner Family
DX: E11.9 Type 2 diabetes mellitus without complications (principal); E78.5 Hyperlipidemia, unspecified; I10 Essential (primary) hypertension
CPT/HCPCS: 36415; 80053; 80061; 82043; 84443; 85025

== ENCOUNTER → 2025-06-07 | Outpatient (CLI) | payer OTHER, SELFPAY ==
[2022-01-31 09:46] VITALS: BMI 34.0
[2025-06-07 16:54] LABS: Hematocrit 45.2 % (40-54); Hemoglobin 14.8 g/dL (13.0-16.5); Immature Granulocytes Count 0.030 X10^3/uL (0.0-0.0); Mean Corp Hgb Conc 32.7 g/dL (32-36); Mean Corpuscular Volume 85.1 fL (80-94); Mean Platelet Vol. 9.1 fl (6.2-12.0); NRBC Flagged by Analyzer 0 % (0-5); Platelet Count 352 K/mm3 (150-450); RBC Distribution Width CV 14.0 % (11.6-14.6); RBC Distribution Width SD 43.3 fl (35.1-43.9); Red Blood Count 5.31 M/mm3 (4.6-6.2); White Blood Count 9.3 K/mm3 (4.4-11.0)
[2025-06-07 17:25] LABS: AST(SGOT) 20 U/L (<=37); Alanine Aminotransfer ALT/SGPT 29 U/L (<=46); Albumin, Serum 4.5 g/dL (3.4-4.8); Alkaline Phosphatase 70 U/L (40-129); Anion Gap 12 (5-15); BUN 15 mg/dL (4-19); BUN/Creat Ratio 14.9 RATIO (10-20); Calcium,Total 9.8 mg/dL (7.6-11.0); Carbon Dioxide 24.4 mmol/L (21.0-32.0); Chloride 102 mmol/L (98-108); Cholesterol 124 mg/dL (<=200); Globulin 2.8 g/dL (2.2-4.2); Glucose 112 mg/dL (70-99); Low Density Lipoprotein Calc. 59 mg/dL; PSA,Total - Annual Screen 0.74 ng/mL (0.02-4.00); Potassium 4.2 mmol/L (3.3-5.1); Triglycerides 202 mg/dL; Very Low Density Lipoprotein 40 mg/dL (5-40); cholesterol:hdl ratio screen 3.90
[2025-06-07 17:41] LABS: Creatinine, Urine (random) 128.00 mg/dL (39.00-259.00); Microalbumin,Random Urine < 12.0 mg/L (<20 mg/L)
== END | disposition home or self-care (01) ==
LOC: VSLAB 15:42
PROVIDERS: PCP Nurse Practitioner Family
DX: Z12.5 Encounter for screening for malignant neoplasm of prostate (principal); E11.9 Type 2 diabetes mellitus without complications; E78.5 Hyperlipidemia, unspecified
CPT/HCPCS: 36415; 80053; 80061; 82043; 82570; 84153; 84443; 85025; G0103